=== PATIENT | male | born 1975 | race Caucasian/White ===

== ENCOUNTER 2016-08-04 11:34 | Emergency (ER) | payer OTHER ==
[~2016-08-04] VITALS: Ht 167.6 cm; Wt 187.3 kg
[2016-08-04 11:49] VITALS: BP 144/65
--- NOTE | 2016-08-04 12:06 | NUR ---
PT C/O LEFT SIDED FACIAL DROOP STARTING THIS MORNING, ASSEMMETRY IN EYES CLOSING AND MOUTH SMILING - EQUAL BUE WAITER/WAITRESS THIRD CLASS/PUSHES, NO DRIFT, DENIES MELARA. DENIES N/V/D; SKIN IS PINK/WARM/DRY; AAOX4 WITH EVEN AND STEADY GAIT; LUNGS CLEAR BL; HR EVEN AND REGULAR; PT DENIES ANY FEVER, CP, SOB, OR COUGH AT THIS TIME; PATIENT STATES PAIN OF 0/10 AT THIS TIME; VSS; PATIENT POSITIONED FOR COMFORT; HOB ELEVATED; BEDRAILS UP X2; BED DOWN. ER MD MADE AWARE OF PT STATUS.
[2016-08-04 14:25] VITALS: BP 143/80
--- NOTE | 2016-08-04 14:25 | NUR ---
Patient discharged with v/s stable. Written and verbal after care instructions given and explained. Patient alert, oriented and verbalized understanding of instructions. Ambulatory with steady gait. All questions addressed prior to discharge. ID band removed. Patient advised to follow up with PMD. Rx of ACYCLOVIR, MEDROL DOSEPAK given. Patient educated on indication of medication including possible reaction and side effects. Opportunity to ask questions provided and answered.
== END 2016-08-04 14:25 | disposition home or self-care (01) ==
LOC: MED 11:34
DX: G51.0 Bell's palsy (principal); R20.0 Anesthesia of skin
CPT/HCPCS: 99283

== ENCOUNTER 2016-08-10 17:16 | Emergency (ER) | payer OTHER ==
[~2016-08-10] VITALS: Ht 167.6 cm; Wt 172.4 kg
[2016-08-10 17:53] VITALS: BP 148/80
--- NOTE | 2016-08-10 20:19 | NUR ---
PATIENT TO ER BED 5
--- NOTE | 2016-08-10 20:20 | NUR ---
40Y/M PATIENT PRESE TS TO ED WITH REQUEST FOR RETURNING WORK PAPER. PT WAS SEEN IN THE ER 08/04/2016 DX [facility] RX ACYCLOVIR AND MEDROL--PT WANTS TO RETURN TO WORK BUT THEY ARE ASKING FOR A CLEAR TO RETURN NOTE. AAO X4, AMBULATORY WITH STEADY GAIT. VSS; ER MED NOTIFIED.
--- NOTE | 2016-08-10 20:25 | NUR ---
Patient being evaluated by DR. KUMARI at bedside.
[2016-08-10 21:12] VITALS: BP 148/80
--- NOTE | 2016-08-10 21:14 | NUR ---
Patient discharged with v/s stable. Written and verbal after care instructions given and explained. Patient verbalized understanding. Ambulatory with steady gait. All questions addressed prior to discharge. Advised to follow up with PMD.
== END 2016-08-10 21:04 | disposition home or self-care (01) ==
LOC: MED 17:16
DX: Z00.8 Encounter for other general examination (principal)